=== PATIENT | female | born 1955 | race Caucasian/White ===

== ENCOUNTER → 2023-10-21 | Outpatient (CLI) | payer MEDICARE ==
[~2023-10-21] VITALS: Ht 167.6 cm; Wt 63.3 kg
[2023-10-21] VITALS (15 sets, daily range): BP systolic 98–134; BP diastolic 50–64; PULSE 78–96; TEMP 99.2
[~2023-10-21] MED LIST: ASPIRIN E.C. 8181 MG PO; CALCIUM 600 PLU1 TAB PO; CRESTOR20 MG PO; CVS SPECTRAVIT1 EA15 PO; CYMBALTA 60MG60 MG PO; FOLIC ACID0.4 MG PO; FOSAMAX 70MG TA70 MG PO; GLEEVEC400 MG PO; HORIZANT600 MG PO; Iohexol 300 - 100 ML VIAL IV ONE; LEVSIN0.125 M1 PO; LIPITOR 40MG TA40 MG PO; MS CONTIN 115 MG/TAB PO; Midazolam 2 MG/2 ML VIAL IV SCH; NORCO 325 MG-101 TAB PO; OMEGA-31 SGL PO; PRINIVIL10 MG PO; PROTONIX 40MG T40 MG PO; TOPROL XL 50MG50 MG PO; ZOFRAN 4MG T4 MG/TAB PO; fentaNYL 50 MCG/ML 2 ML VIAL IV SCH
== END ==
LOC: COL.RAD 06:30
DX: N13.39 Other hydronephrosis (principal); Z87.440 Personal history of urinary (tract) infections
CPT/HCPCS: C1729; J2250; J3010; Q9967

== ENCOUNTER 2024-04-21 06:33 | Day surgery (SDC) | payer MEDICARE ==
[~2024-04-21] VITALS: Ht 167.6 cm; Wt 61.8 kg
[~2024-04-21 06:33] MED LIST changes: -Iohexol 300 - 100 ML VIAL IV ONE; -Midazolam 2 MG/2 ML VIAL IV SCH; -fentaNYL 50 MCG/ML 2 ML VIAL IV SCH
[2024-04-21] MEDS ORDERED: OMEGA-3 1000 MG1 CAP PO (07:24)
[2024-04-21] MEDS ORDERED: Meclizine 25 MG TAB PO SCH (07:40)
[2024-04-21] MEDS ORDERED: LR 1,000 ML IV ONE (07:45)
[2024-04-21] MEDS ORDERED: Lidocaine PF 2% (20 MG/ML) 5 ML VIAL ONE (08:01)
[2024-04-21] MEDS ORDERED: fentaNYL 50 MCG/ML 2 ML VIAL ONE ×2 (08:01→09:21)
[2024-04-21 08:33] VITALS: BP 119/59; PULSE 86; TEMP 98.5
[2024-04-21] MEDS ORDERED: dexAMETHasone 10 MG/ML VIAL ONE (08:50)
[2024-04-21] MEDS ORDERED: Ondansetron 4 MG/2 ML VIAL ONE (08:50)
[2024-04-21] MEDS ORDERED: Iohexol 350 - 100 ML VIAL URETER-B ONE (09:00)
[2024-04-21] MEDS ORDERED: HYDROmorphone 1 MG/1 ML SYRINGE [PACU/SDC ONLY] IV PRN (09:15)
[2024-04-21] MEDS ORDERED: Meperidine 50 MG/ML 1 ML VIAL IV PRN (09:15)
[2024-04-21] MEDS ORDERED: Ondansetron 4 MG/2 ML VIAL IV PRN (09:15)
[2024-04-21] MEDS ORDERED: fentaNYL 50 MCG/ML 1 ML SYRINGE/VIAL [PACU/SDC ONLY] IV PRN (09:15)
[2024-04-21] MEDS ORDERED: Morphine 4 MG/ML VIAL IV PRN (09:30)
[2024-04-21] MEDS ORDERED: Hyoscyamine 0.125 MG Sublingual TAB SL PRN (09:30)
[2024-04-21] MEDS ORDERED: oxyCODONE/Acetaminophen 5-325 MG TAB PO PRN (09:30)
[2024-04-21 10:00] VITALS: BP 110/44; PULSE 62; TEMP 97.1
[2024-04-21 10:15] VITALS: BP 111/48; PULSE 58
[2024-04-21 10:30] VITALS: BP 116/56; PULSE 60
[2024-04-21 10:50] VITALS: BP 113/52; PULSE 60; TEMP 97.8
--- NOTE | 2024-04-21 11:00 | NUR ---
1000 RETURNS TO ROOM 1 PER CART, AWAKE, ALERT. LYING SLIGHTLY ON LEFT SIDE WITH HOB ELEVATED 40 DEGREES. RESP UNLABORED. VITAL SIGNS OBTAINED. ABD SOFT. SUPRAPUBIC CATHETER IN PLACE, URINE RETURNS CLEAR, LIGHT PINK. DRESSING AT INSERTION SITE CLEAN DRY AND INTACT. CALL LIGHT AT SIDE. HERE. 1015 HOB ELEVATED 70 DEGREES. TOLERATES PO JUICE WITHOUT NAUSEA 1025 DISCHARGE INSTRUCTIONS REVIEWED. PATIENT AND VERBALIZE UNDERSTANDING. COPY PROVIDED IN DISCHARGE FOLDER. 1040 IV SITE DC'D 1050 DRESSES WITH ASSIST FROM , THEN TRANSFERRED TO WHEELCHAIR WITH ASSIST OF
== END 2024-04-21 11:00 | disposition home or self-care (01) ==
LOC: SDCO 06:33
DX: R31.0 Gross hematuria (principal); R33.8 Other retention of urine; K21.9 Gastro-esophageal reflux disease without esophagitis; Z92.3 Personal history of irradiation; Z85.830 Personal history of malignant neoplasm of bone; F17.200 Nicotine dependence, unspecified, uncomplicated; Z87.440 Personal history of urinary (tract) infections
CPT/HCPCS: C1769; J0690; J1100; J2405; J2704; J3010; J7120; Q9967